=== PATIENT | male | born 1960 | race Caucasian/White ===

== ENCOUNTER 2018-02-26 18:14 | Emergency (ER) | payer OTHER ==
[2018-02-26 18:28] VITALS: BP 154/98; PULSE 89; TEMP 98.6; BMI 34.0
--- NOTE | 2018-02-26 18:29 | PDOC ---
Rapid Medical Evaluation Chief Complaint: Pain, Acute Time Seen by Provider: 02/26/18 18:23 Medical Evaluation: Allergies Allergy/AdvReac Type Severity Reaction Status Date / Time No Known Allergies Allergy Verified 02/02/14 18:58 02/26/18 18:26 58 year old male with left index finger pain unsure of injury. limited rom PE: patient alert ox3. pain to DIP joint A; finger pain p" xray patient to the ER for further management of care. Discharge Disposition - Diagnosis Finger pain, left - Referrals - Patient Instructions - Post Discharge Activity
[2018-02-26] MEDS ORDERED: KETOROLAC TROMETHAMINE 60 MG/2 ML VIAL IM ONE (18:53)
[2018-02-26] MEDS ORDERED: KETOROLAC TROMETHAMINE 60 MG/2 ML VIAL ONE (18:55)
--- NOTE | 2018-02-26 18:58 | PDOC ---
History of Present Illness - General Chief Complaint: Pain, Acute Stated Complaint: HAND PAIN Time Seen by Provider: 02/26/18 18:23 History Source: Patient - History of Present Illness Occurred: reports: other Upper Extremity Pain Location: left: 2nd finger, hand Past History - Past Medical History Allergies/Adverse Reactions: Allergies Allergy/AdvReac Type Severity Reaction Status Date / Time No Known Allergies Allergy Verified 02/26/18 18:25 Home Medications: Ambulatory Orders Oxycodone HCl/Acetaminophen [Percocet 5-325 mg Tablet -] 1 - 2 tab PO Q6H #20 tablet 01/09/14 Clindamycin [Cleocin -] 300 mg PO TID #30 capsule 02/02/14 Ibuprofen [Motrin] 800 mg PO TID #20 tablet 02/02/14 Methylprednisolone [Medrol Dose Josué] 4 mg PO ASDIR #21 tablet 02/02/14 Oxycodone HCl/Acetaminophen [Percocet 5-325 mg Tablet] 1 - 2 tab PO Q6H #20 tablet 02/02/14 COPD: No DVT: No Dementia: No Other medical history: GERD & BPH - Immunization History Immunization Up to Date: No - Suicide/Smoking/Psychosocial Hx Smoking History: Never smoked Have you smoked in the past 12 months: No Information on smoking cessation initiated: No Hx Alcohol Use: No Drug/Substance Use Hx: No Substance Use Type: None Review of Systems - Review of Systems Constitutional: No: Chills, Fever Musculoskeletal: Yes: Joint Pain. No: Joint Swelling *Physical Exam - Vital Signs Last Vital Signs Temp Pulse Resp BP Pulse Ox 98.6 F 89 16 154/98 99 02/26/18 18:25 02/26/18 18:25 02/26/18 18:25 02/26/18 18:25 02/26/18 18:25 - Physical Exam General Appearance: Yes: Appropriately Dressed. No: Apparent Distress HEENT: positive: Normal Voice Neck: positive: Supple Respiratory/Chest: negative: Respiratory Distress Extremity: positive: Tender (to PIP and MCP J of L 2nd digit without swelling, deformity or skin changes, FROMI, able to make fist, NVI) Integumentary: positive: Dry, Warm Neurologic: positive: Fully Oriented, Alert, Normal Mood/Affect Medical Decision Making - Medical Decision Making 02/26/18 18:55 58-year-old male, history of GERD, BPH, here with left hand pain. Patient states for the past 2 days has had severe pain to left 2nd finger diffusely. Taking Tylenol with no relief. Denies any trauma or other obvious inciting factors. Patient is left-handed and does heavy lifting at work. Patient states he also has intermittent pain to left hand when he is pushing himself up from a sitting position. Also states for the past several years, he has had intermittent numbness to left hand that usually goes away when he shakes hand per patient. No wrist pain or tingling See exam Possible arthritis vs overuse injury to L hand No trauma No e/o gout or infection at this time Hx not c/w carpel tunnel -pain control in ED -dc w/ motrin prn and pmd f/u for further evaluation 02/26/18 19:00 *DC/Admit/Observation/Transfer Diagnosis at time of Disposition: Hand pain, left - Discharge Dispostion Disposition: HOME Condition at time of disposition: Good - Referrals - Patient Instructions Printed Discharge Instructions: DI for Hand Pain Additional Instructions: The cause of your left hand pain is unclear at this time. Possibilities include arthritis or overuse injury as discussed in ED. Take Motrin as needed for pain Follow-up with your doctor for further evaluation and possible referral to a cornice upholsterer - Post Discharge Activity
== END 2018-02-26 19:15 | disposition home or self-care (01) ==
LOC: JERFT 18:14
PROC: 3E0233Z Introduction of Anti-inflammatory into Muscle, Percutaneous Approach (ICD-10-PCS; principal; 2018-02-26)
DX: M79.642 Pain in left hand (principal); S69.82XA Other specified injuries of left wrist, hand and finger(s), initial encounter; N40.0 Benign prostatic hyperplasia without lower urinary tract symptoms; K21.9 Gastro-esophageal reflux disease without esophagitis
CPT/HCPCS: 96372; 99281-25

== ENCOUNTER 2020-04-06 12:08 | Emergency (ER) | payer OTHER ==
[2020-04-06 12:17] VITALS: BP 162/87; PULSE 79; TEMP 98.5; BMI 34.0
--- OUTSIDE RECORDS SUMMARY | 2020-04-06 12:32 | XMS ---
:1960 Author Organization [facility] Support Name Relationship Address Phone KEITH Guerrero [address] [place] [address] JACQUES PARTNER [address] [place] [address] Re-disclosure Warning The records that you are about to access may contain information from federally- assisted alcohol or drug abuse programs. If such information is present, then the following federally mandated warning applies: This information has been disclosed to you from records protected by federal confidentiality rules (42 CFR part 2). The federal rules prohibit you from making any further disclosure of this information unless further disclosure is expressly permitted by the written consent of the person to whom it pertains or as otherwise permitted by 42 CFR part 2. A general authorization for the release of medical or other information is NOT sufficient for this purpose. The Federal rules restrict any use of the information to criminally investigate or prosecute any alcohol or drug abuse patient.The records that you are about to access may contain highly sensitive health information, the redisclosure of which is protected by Article 27-F of the [facility] Public Health law. If you continue you may haveaccess to information: Regarding HIV / AIDS; Provided by facilities licensed or operated by the [facility] Office of Mental Health; or Provided by the [facility] Office for People With Developmental Disabilities. If such information is present, then the following [facility] mandated warning applies: This information has been disclosed to you from confidential records which are protected by state law. State law prohibits you from making any further disclosure of this information without the specific written consent of the person to whom it pertains, or as otherwise permitted by law. Any unauthorized further disclosure in violation of state law may result in a fine or penitentiary sentence or both. A general authorization for the release of medical or other information is NOT sufficient authorization for further disclosure. Family History Family Member Family Member Family Member Date of Description Data Source(s) Name Gender Status Status Unknown Male Diagnosis 11/04/2010 [facility] ([facility] 12:00:00 AM [facility]) Insurance Providers Payer name Policy type Policy ID Covered Covered democrat's Policy P lilian / Coverage democrat ID relationship to [place] Inf ormation type medrano [employer] MEDICAID [id number] SP [id number] COMM PLAN MVP Medicaid [id number] S [id number] 01 Managed Care Dental [id number] S [id number] Healthplex MKD [place] [id number] S [id number] Vision [facility]D [facility] [id number] S [id number] 1 FFS Medicaid Medicaid [id number] S [id number] Wrap Claims [facility] [id number] S [id number] 1 Options MKD (DON'T USE) [id number] S [id number] 1 Dental [facility] Non-Par Medical Man[facility] [address] (DO NOT USE) [id number] S [id number] 01 [facility] Auth PCP Not MVNHC/YHC/GHC Results ID Date Data Source [id number] 11/11/2019 12:00:00 AM EDT [facility] Name Value Range Interpretation Code Description Data Malissa rce(s) Supporting Document(s ) 2019-nCoV [facility] RNA XXX LINSEY+probe- Imp This lab was ordered by [facility]-Minh BARRAZA and reported by [employer] Procedure
[2020-04-06] MEDS ORDERED: KETOROLAC TROMETHAMINE 30 MG/1 ML VIAL IM ONE (13:03)
[2020-04-06] MEDS ORDERED: KETOROLAC TROMETHAMINE 30 MG/1 ML VIAL ONE (13:12)
[2020-04-06 13:23] LABS: BASO % 0.5 % (0-2.0); HEMATOCRIT 41.4 % (35.4-49); HEMOGLOBIN 14.3 GM/dL (11.7-16.9); LYMPH % 28.2 % (8-40); MCH 30.9 pg (25.7-33.7); MCHC 34.5 g/dl (32.0-35.9); MEAN CELL VOLUME 89.5 fl (80-96); MEAN PLT VOLUME 8.7 fl (7.5-11.1); MONO % 10.3 % (3.8-10.2); PLATELET COUNT 173 K/MM3 (134-434); RBC 4.62 M/mm3 (4.00-5.60); WHITE BLOOD COUNT 5.5 K/mm3 (4.0-10.0)
--- NOTE | 2020-04-06 13:33 | PDOC ---
History of Present Illness - General Chief Complaint: Pain Stated Complaint: NECK PAIN Time Seen by Provider: 04/06/20 12:37 History Source: Patient Exam Limitations: No Limitations - History of Present Illness Initial Comments: 04/06/20 13:15 60-year-old male history of gastritis, BPH presents complaining of left-sided neck pain after heavy lifting at work 1 week ago. Yesterday reports feeling right-sided throat pain, left-sided temporal discomfort, "I just don't feel right". Denies changes in vision, fever, chills, rash, headache, vomiting, Recent travel, known sick contacts, abdominal pain, chest pain, shortness of breath, weakness, numbness, tingling or any other complaints. Patient has been taking acetaminophen daily with some relief. States today neck pain has improved greatly and sore throat is resolved. ROS: as above PE: GENERAL: well-appearing, NAD HEAD: NCAT EYES: EOMI, Pupils equal, round and reactive to light, sclera anicteric, conjunctiva clear ENT: Normal bilateral ear canals, pharynx: no erythema, no exudate, uvula midline NECK: supple, no lymphadenopathy CHEST: nontender RESP: clear, no w/r/r CARDIO: rrr, no m/g/r ABD: +BS, soft, nontender, non distended BACK: no midline spinal ttp, no CVAT EXTREMITIES: Normal range of motion, no edema NEUROLOGICAL: Normal speech, normal gait SKIN: No rashes noted, warm, Dry Is this a multiple visit Asthma Patient?: No Past History - Medical History Allergies/Adverse Reactions: Allergies Allergy/AdvReac Type Severity Reaction Status Date / Time No Known Allergies Allergy Verified 04/06/20 12:10 Home Medications: Ambulatory Orders Oxycodone HCl/Acetaminophen [Percocet 5-325 mg Tablet -] 1 - 2 tab PO Q6H #20 tablet 01/09/14 Clindamycin [Cleocin -] 300 mg PO TID #30 capsule 02/02/14 Ibuprofen [Motrin] 800 mg PO TID #20 tablet 02/02/14 Methylprednisolone [Medrol Dose Josué] 4 mg PO ASDIR #21 tablet 02/02/14 Oxycodone HCl/Acetaminophen [Percocet 5-325 mg Tablet] 1 - 2 tab PO Q6H #20 tablet 02/02/14 COPD: No DVT: No Dementia: No - Immunization History Immunization Up to Date: No - Psycho-Social/Smoking History Smoking History: Never smoked Have you smoked in the past 12 months: No - Substance Abuse Hx (Audit-C & DAST Scrn) How often the patient has a drink containing alcohol: Never Score: In Men: 4 or > Positive; In Women: 3 or > Positive: 0 Screen Result (Pos requires Nsg. Audit-10AR): Negative In the last yr the pt used illegal drug/Rx for NonMed reason: No Score: Yes response is considered Positive: 0 Screen Result (Positive result requires Nsg. DAST-10): Negative *Physical Exam - Vital Signs Last Vital Signs Temp Pulse Resp BP Pulse Ox 98.5 F 79 18 162/87 97 04/06/20 12:11 04/06/20 12:11 04/06/20 12:11 04/06/20 12:11 04/06/20 12:11 ED Treatment Course - LABORATORY CBC & Chemistry Diagram: 04/06/20 13:05 04/06/20 13:05 Medical Decision Making - Medical Decision Making 04/06/20 13:33 60-year-old male history of gastritis, BPH presents complaining of left-sided neck pain after heavy lifting at work 1 week ago. Yesterday reports feeling right-sided throat pain, left-sided temporal discomfort, "I just don't feel right". Denies changes in vision, fever, chills, rash, headache, vomiting, Recent travel, known sick contacts, abdominal pain, chest pain, shortness of breath, weakness, numbness, tingling or any other complaints. Patient has been taking acetaminophen daily with some relief. States today neck pain has improved greatly and sore throat is resolved. cbc, cmp toradol 30 mg IM covid swab re assess 04/06/20 14:24 reviewed labs advised patient to remain hydrated note for work provided return precautions discussed will f/u with pmd Discharge - Discharge Information Problems reviewed: Yes Clinical Impression/Diagnosis: Neck pain Condition: Stable Disposition: HOME - Admission No - Follow up/Referral Referrals: ON STAFF,NOT [Primary Care Provider] - - Patient Discharge Instructions Additional Instructions: Remain hydrated, alternate between acetaminophen 650 and ibuprofen 600 mg every 6 hours as needed Follow-up with your primary care doctor within 1 week If symptoms worsen return to ED - Post Discharge Activity Work/Back to School Note: Back to Work
[2020-04-06 14:07] LABS: ALBUMIN 3.8 g/dl (3.4-5.0); BILIRUBIN,TOTAL 0.4 mg/dL (0.2-1); BLOOD UREA NITROGEN 22.1 mg/dL (7-18); CALCIUM 9.1 mg/dL (8.5-10.1); CREATININE 0.9 mg/dL (0.55-1.3); POTASSIUM 4.1 mmol/L (3.5-5.1); TOT PROT 7.5 g/dl (6.4-8.2)
== END 2020-04-06 14:29 | disposition home or self-care (01) ==
LOC: JERFT 12:08
PROC: 3E0233Z Introduction of Anti-inflammatory into Muscle, Percutaneous Approach (ICD-10-PCS; principal; 2020-04-06)
DX: M54.2 Cervicalgia (principal)
CPT/HCPCS: 36415; 80053; 85025; 99284-25; C9803; U0003

== ENCOUNTER 2021-06-24 06:43 | Emergency (ER) | payer OTHER ==
[2021-06-24 07:00] VITALS: BP 142/92; PULSE 100; TEMP 98.2; BMI 41.3
[2021-06-24] MEDS ORDERED: ASPIRIN 81 MG CHEWABLE TABLETS PO ONE (08:23)
[2021-06-24] MEDS ORDERED: ASPIRIN 81 MG CHEWABLE TABLETS ONE (09:09)
[2021-06-24 09:25] LABS: BASO % 0.3 % (0-2.0); EOS % 2.2 % (0-4.5); HEMATOCRIT 43.4 % (35.4-49); HEMOGLOBIN 14.7 GM/dL (11.7-16.9); LYMPH % 31.5 % (8-40); MCH 30.4 pg (25.7-33.7); MCHC 33.8 g/dl (32.0-35.9); MEAN CELL VOLUME 90.1 fl (80-96); MONO % 14.9 % (3.8-10.2); NEUT % 51.1 % (42.8-82.8); PLATELET COUNT 181 10^3/uL (134-434); RBC 4.81 M/mm3 (4.00-5.60); RDW 12.9 % (11.9-15.9); WHITE BLOOD COUNT 5.2 K/mm3 (4.0-10.0)
[2021-06-24 09:30] LABS: INR 1.04 (0.83-1.09); PROTHROMBIN TIME (PATIENT) 12.2 SEC (9.7-13.0)
[2021-06-24 09:33] LABS: ACTIVATED PTT 31.6 SECONDS (25.2-36.5)
[2021-06-24 09:40] LABS: CHLORIDE 108 mmol/L (98-107); SODIUM 142 mmol/L (136-145)
[2021-06-24 09:42] LABS: CALCIUM 9.2 mg/dL (8.5-10.1)
[2021-06-24 09:43] LABS: ALBUMIN 3.8 g/dl (3.4-5.0); ANION GAP 5 MMOL/L (8-16); BLOOD UREA NITROGEN 22.2 mg/dL (7-18); CO2 29 mmol/L (21-32); GLUCOSE,RANDOM 103 mg/dL (74-106)
[2021-06-24 09:46] LABS: CREATININE 0.9 mg/dL (0.55-1.3); SGOT/AST 28 U/L (15-37); SGPT/ALT 37 U/L (13-61)
[2021-06-24 09:47] LABS: BILIRUBIN,TOTAL 0.2 mg/dL (0.2-1); TOT PROT 7.7 g/dl (6.4-8.2)
[2021-06-24 09:48] LABS: ALK PHOS 86 U/L (45-117)
== END 2021-06-24 16:55 | disposition home or self-care (01) ==
LOC: JER 06:43
DX: R07.9 Chest pain, unspecified (principal)
CPT/HCPCS: 36415; 71045-TC-FY; 80053; 82550; 82553; 84484; 85025; 85610; 85730; 93005; 93010; 99285-25; C9803; U0003; U0005